=== PATIENT | female | born 1975 | race Caucasian/White ===

== ENCOUNTER 2017-03-26 08:59 | Inpatient (IN) | payer BC, OTHER ==
[~2017-03-26] VITALS: Ht 160 cm; Wt 71.7 kg
[2017-03-27 16:45] VITALS: BP 141/85
[2017-03-27] MEDS ORDERED: LORAZEPAM 1 MG TABLET PO PRN ×2 (16:45)
[2017-03-27] MEDS ORDERED: ACETAMINOPHEN 325 MG TABLET PO PRN (16:45)
[2017-03-27] MEDS ORDERED: LORAZEPAM 2 MG/1 ML VIAL IM PRN (16:45)
[2017-03-27] MEDS ORDERED: MAG HYDROX/AL HYDROX/SIMETH 30 ML LIQUID UDC PO PRN (16:45)
[2017-03-27] MEDS ORDERED: diphenhydrAMINE 50 MG CAPSULE PO PRN (16:45)
[2017-03-27] MEDS ORDERED: MIRALAX 17 GM POWD.PACK PO PRN (16:45)
[2017-03-27] MEDS ORDERED: ONDANSETRON 4 MG/2 ML VIAL IM PRN (16:45)
[2017-03-27] MEDS ORDERED: ONDANSETRON ODT 4 MG TAB.RAPDIS SL PRN (16:45)
[2017-03-27] MEDS ORDERED: LOPERAMIDE HCL 2 MG CAPSULE PO PRN ×2 (16:45)
[2017-03-27] MEDS ORDERED: CLONIDINE HCL 0.1 MG TABLET PO PRN (16:45)
--- NOTE | 2017-03-27 16:45 | NUR ---
PRE-ASSESSMENT: Pre-Assessment done at intake office, client is A/O x4, she presents with flat affect, anxious mood, fidgety. T 98, RR 18, BP 141/85, HR 107, spO2 @ 97% on RA, [place] 0/10. She is fully ambulatory. She denies any allergies; she denies any withdrawal-induced seizure. PMH: depression, anxiety, mood disorder, hypothyroidism. Past surgical hx: Bilateral tubal ligation, R knee sx, L tibia ORIF Medications taken at home Levothyroxine unknow dose Prednisone 20mg daily PO x 6/10 days for spider bite on R cheek 03/21/17 Keflex 500mg TID PO x 6/10 days for spider bite on R cheek 03/21/17 Neosporin ointment TOP for spider bite on R cheek 03/21/17 Substance history Alcohol 500-750mL for 4 years, last used 250mL prior to admission Alprazolam unknown dose 4 or 5 times a month, last used day of admission Hydrocodone unknown dose 4 or 5 times a month, last used 03/26/17 Cannabis a joint two or three time a week, last used day of admission Vital signs, urine drug screen, blood drawn, and home medication protocols discuss with client.
[2017-03-27 17:00] LABS: *URINE HCG, QUAL NEGATIVE (NEGATIVE)
--- NOTE | 2017-03-27 17:00 | NUR ---
Admissions Note 41 year old female admitted to [facility] for withdrawal from alcohol. Client reports PMH: depression, anxiety, mood disorder, hypothyroidism. Past surgical hx: Bilateral tubal ligation, R knee sx, L tibia ORIF Client is oriented to unit, educated about protocols and how to work TV and call light in her room. Weight: 158 pounds. Height: 5'3" CIWA 4 Client appears anxious, fidgety, skin intact with dry scab on R cheek d/t spider bite on 03/21/17. Bilateral lung clear on auscultation, abdomen soft, non-tender, no edema noted. Clients voice is soft, she avoids eye contact. Client has NKA. Regular diet ordered. Full code status ordered. Client denies any history of seizures. LBM was 03/27/17, small/brown/soft. PCP is Dr. Coleman, Pharmacy [facility] . She verbalizes consent for PNA and FLU vaccine. She gives verbal consent for HIV and request to be tested for STDs. Dr. Chavarria notified. Client states that he lives with her , two sons ages 26 and 23, and a 16-year-old daughter. She reports a prior treatment in a residential treatment center in 2009 for 5 days. Her longest period of sobriety is for 7 years from [id number] Dr Chavarria assessed client. Urine was collected upon admission. All safety measures instituted. [place] precaution. Call light within reach. Will continue to monitor.
[2017-03-27 17:07] LABS: *AMPHETAMINE, URINE POSITIVE (NEGATIVE); *BARBITURATE, URINE NEGATIVE (NEGATIVE); *CANNABINOID, URINE NEGATIVE (NEGATIVE); *COCCAINE, URINE NEGATIVE (NEGATIVE); *OPIATE, URINE NEGATIVE (NEGATIVE); *PHENCYCLIDINE SCREEN,URINE NEGATIVE (NEGATIVE)
[2017-03-27 17:21] LABS: BASOPHILS # (AUTO) 0.3 K/uL (0.0-8.0); BASOPHILS % (AUTO) 1.6 % (0.0-2.0); EOSINOPHILS % (AUTO) 0.2 % (0.0-7.0); HEMATOCRIT 45.2 % (37-47); HEMOGLOBIN 14.9 G/DL (12.0-16.0); LYMPHOCYTES # (AUTO) 1.6 K/UL (0.8-4.8); LYMPHOCYTES % (AUTO) 9.7 % (20.5-51.5); MEAN CORPUSCULAR HGB CONC 33 g/dL (32.0-37.0); MEAN CORPUSCULAR VOLUME 91.2 FL (81.0-99.0); MONOCYTES # (AUTO) 0.7 K/UL (0.1-1.30); MONOCYTES % (AUTO) 4.1 % (0.0-11.0); NEUTROPHILS # (AUTO) 13.8 K/UL (1.8-8.9); NEUTROPHILS % (AUTO) 84.4 % (38.5-71.5); PLATELET COUNT (AUTO) 208 K/UL (150-450); RED BLOOD CELL COUNT(AUTO) 4.95 MIL/UL (4.2-5.4); WHITE BLOOD COUNT (AUTO) 16.4 K/UL (4.0-11.2)
[2017-03-27 17:22] LABS: ETHANOL < 3 MG/DL (0-0)
[2017-03-27 17:24] LABS: ALANINE AMINOTRANSFERASE 37 U/L (14-59); ALKALINE PHOSPHATASE 89 U/L (50-136); AMYLASE 54 U/L (25-115); ASPARTATE AMINOTRANSFERASE 15 U/L (15-37); BILIRUBIN,TOTAL 0.2 mg/dL (0.2-1.0); CARBON DIOXIDE 26 mmol/L (21-32); CHLORIDE 103 mmol/L (98-107); GLUCOSE 82 mg/dL (74-106); MAGNESIUM 2.1 mg/dL (1.8-2.4); POTASSIUM 4.1 mmol/L (3.5-5.1); TOTAL PROTEIN, SERUM 8.7 g/dL (6.4-8.2); UREA NITROGEN, BLOOD 16 mg/dL (7-18)
[2017-03-27 17:33] LABS: THYROID STIMULATING HORMONE 0.658 mIU/mL (0.358-3.740)
[2017-03-27] MEDS ORDERED: PRED20TA PO (17:43)
[2017-03-27] MEDS ORDERED: NEOM28.37 TP (17:43)
[2017-03-27] MEDS ORDERED: CEPH-570 PO (17:43)
[2017-03-27 17:59] LABS: LYMPHOCYTES % (MANUAL) 15 % (20-40); MONOCYTES % (MANUAL) 7 % (2-10); NEUTROPHILS % (MANUAL) 78 % (42-75)
[2017-03-27] MEDS ORDERED: THIAMINE HCL 200 MG/2 ML VIAL IM ONE (18:00)
[2017-03-27] MEDS ORDERED: LEVO50TA8 PO (18:40)
--- NOTE | 2017-03-27 19:30 | NUR ---
END OF SHIFT Client is in room, she is a/o x 4, she consume 50% of meal, PO fluid intake of 500mL, void x 1. Safety precautions rendered. Call light within reach.
[2017-03-27 20:00] VITALS: BP 132/77
--- NOTE | 2017-03-27 20:00 | NUR ---
START OF SHIFT NOTE RECEIVED REPORT FROM DAY SHIFT NURSE. PATIENT IS A 41 YEAR OLD FEMALE NEWLY ADMITTED FOR ETOH DEPENDENCE. PATIENT WAS PLACED ON 5 DAYS ATIVAN TAPER TO START TOMORROW. PATIENT REPORTS PMH OF ANXIETY, DEPRESSION, HYPOTHYROIDISM, BOTH TUBAL LIGATION , RIGHT KNEE SURGERY AND LEFT TIBIA ORIF. NO SEIZURE HISTORY. PATIENT WITH DRY SCAB ON RIGHT CHEEK DUE TO SPIDER BITE ON 03/21/17. PATIENT IS ON ANTIBIOTIC AND PREDNISONE. THIAMINE IM INJECTION WAS GIVEN. LAST CIWA 4. PATIENT IN HER ROOM, RESTING, UPON GREETING, PATIENT STATES SHE'S TIRED, NO N/V, DENIES ANY PAIN AT THIS TIME. ON FALL/SEIZURE PRECAUTION. SAFETY MEASURES IN PLACE. CALL LIGHT IN REACH. WILL CONTINUE TO MONITOR.
[2017-03-27] MEDS: CEPHALEXIN 500MG PO SCH (20:17)
--- NOTE | 2017-03-27 20:17 | NUR ---
PRN BENADRYL RE-ASSESSMENT PATIENT REQUESTS FOR SLEEP AID. PRN BENADRYL GIVEN. WILL MONITOR FOR EFFECTIVENESS
[2017-03-27] MEDS ORDERED: LORAZEPAM 1 MG TABLET PO SCH (21:00)
--- NOTE | 2017-03-27 22:00 | NUR ---
VANNA GARCIA RE-ASSESSMENT PATIENT ASLEEP AT THIS TIME. RESPIRATION EVEN AND UNLABORED. SAFETY MEASURES IN PLACE. CALL LIGHT IN REACH. WILL CONTINUE TO MONITOR
[2017-03-28] VITALS: BP 122/78
--- NOTE | 2017-03-28 | NUR ---
CIWA DEFERRED PATIENT SLEEPING. CIWA DEFERRED. RESPIRATION EVEN AND UNLABORED. SAFETY MEASURES IN PLACE. CALL LIGHT IN REACH. WILL CONTINUE TO MONITOR
[2017-03-28 04:00] VITALS: BP 112/71
--- NOTE | 2017-03-28 04:00 | NUR ---
CIWA DEFERRED PATIENT SLEEPING. CIWA DEFERRED. RESPIRATION EVEN AND UNLABORED. SAFETY MEASURES IN PLACE. CALL LIGHT IN REACH. WILL CONTINUE TO MONITOR
[2017-03-28] MEDS: LEVOTHYROXINE SODIUM 50 MCG TABLET PO SCH (06:33)
--- NOTE | 2017-03-28 07:13 | NUR ---
END OF SHIFT NOTE PATIENT IS A 41 YEAR OLD FEMALE ADMITTED FOR ETOH DEPENDENCE. PATIENT WAS PLACED ON 5 DAYS ATIVAN TAPER TO START TODAY. PATIENT WITH DRY SCAB ON RIGHT CHEEK DUE TO SPIDER BITE ON 03/21/17. PATIENT IS ON ANTIBIOTIC WITH NO ADVERSE REACTION AND PREDNISONE. PATIENT IN HER ROOM MOST OF THE SHIFT. PATIENT WAS GIVEN PRN BENADRYL FOR SLEEP. PATIENT ENCOURAGE FLUIDS. ON FALL/SEIZURE PRECAUTION. SAFETY MEASURES IN PLACE. CALL LIGHT IN REACH. WILL CONTINUE TO MONITOR. SLEPT 11 HOURS. FLUID INTAKE 500 ML. VOIDED X 1. NO BM . LAST CIWA 5.
--- NOTE | 2017-03-28 07:30 | NUR ---
START OF SHIFT Pt is a 41 yr old female, AA&Ox4. Pt was admitted on 03/27/17 for ETOH/Benzo dependence and is on 5 day Ativan taper as ordered. received report from long term care administrator nurse. Pt is full code, regular diet and NKA. Pt slept for 11 hrs during the night. Last CIWA score was 5 at 1999. Pt received Benadryl PRN for sleep. Medication was effective. Pt is on antibiotics for dry scab on right cheek. No adverse reaction noted. pt is currently in bed resting with respirations even and unlabored. No acute distress noted. Pt is on fall and seizure precaution. Safety precautions observed. Call light is within reach. Will continue to monitor.
[2017-03-28 08:00] VITALS: BP 130/78
[2017-03-28] MEDS ORDERED: TUBERCULIN,PURIF.PROT.DERIV. 5 TU/0.1 ML TEST ID ONE (09:00)
[2017-03-28] MEDS: THIAMINE HCL 100 MG TABLET PO SCH (09:32)
[2017-03-28] MEDS: FOLIC ACID 1 MG TABLET PO SCH (09:33)
[2017-03-28] MEDS: MULTIVITAMINS,THERAPEUTIC TABLET PO SCH (09:33)
[2017-03-28] MEDS: LORAZEPAM 1 MG TABLET PO SCH ×4 (09:33→21:22)
[2017-03-28] MEDS: PREDNISONE 20MG PO SCH (09:48)
[2017-03-28] MEDS: IBUPROFEN 600 MG TABLET PO PRN ×2 (09:48→21:22)
--- NOTE | 2017-03-28 09:48 | NUR ---
PRN GIVEN Pt c/o generalized body aches 08/23. Motrin 600mg PO PRN was given as ordered. Encouraged increase fluid intake. Will continue to monitor.
[2017-03-28] MEDS ORDERED: PNEUMOCOCCAL 23-VAL P-SAC VAC 0.5 ML VIAL IM ONE (10:00)
[2017-03-28] MEDS ORDERED: INFLUENZA VACCINE 2017-2018 0.5 ML DISP.SYRIN IM ONE (10:00)
[2017-03-28] MEDS: CEPHALEXIN 500MG PO SCH ×3 (10:02→21:22)
--- NOTE | 2017-03-28 10:48 | NUR ---
PRN RE-ASSESSMENT Motrin PRN was effective. Pt is currently in bed resting. No acute distress noted. Safety precaution observed.
[2017-03-28 12:00] VITALS: BP 113/74
--- NOTE | 2017-03-28 12:00 | NUR ---
CIWA DEFERRED CIWA assessment deferred. Pt is currently in bed sleeping with respirations even and unlabored. No acute distress noted RR is 16. Safety precautions observed. Call light is within reach. Will continue to monitor. Addendum: 03/28/17 at 1332 by LONNIE HOLMAN LVN Amended: Links added.
--- NOTE | 2017-03-28 13:33 | NUR ---
NSG NOTES Ativan 2mg PO as scheduled for 1300 was held due to pt is too sedative. Safety precautions observed. Call light is within reach. Will continue to monitor.
[2017-03-28 16:00] VITALS: BP 112/70
[2017-03-28] MEDS ORDERED: QUETIAPINE FUMARATE 25 MG TABLET PO PRN (18:30)
--- NOTE | 2017-03-28 18:33 | NUR ---
COMMUNICATION Report to Dr. Dinh, Pt was requesting for Seroquel for sleep. Received telephone order to discontinue Benadryl PRN for sleep and new order for Seroquel 50mg PO HSPRN for insomnia. New order was noted and carried out.
--- NOTE | 2017-03-28 18:54 | NUR ---
END OF SHIFT Pt is a 41 yr old female, AA&Ox4. Pt was admitted on 03/27/17 for ETOH/Benzo dependence and is on 5 day Ativan taper as ordered. Medication was shirley well. Ativan 2mg PO as scheduled at 1300 was held due to pt was too sedative. Pt has been cooperative with medication regimen. Pt did not attended group during the day due to pt was too sedative. Last CIWA score was 5 at 1600. Pt received Motrin PRN for generalized muscle aching. Medication was effective. Pt remains on antibiotics for infection on dry scab on right cheek. No adverse reaction noted. Encouraged increase fluid intake. Pt is on fall and seizure precaution. Safety precautions observed. Call light is within reach.
--- NOTE | 2017-03-28 19:50 | NUR ---
START OF SHIFT Received report from day shift nurse. Pt is lying in bed resting. She is a 41 yo female admitted to [facility] on 03/27 for ETOH dependence with a h/o BZD use. She is A&O x4 and ambulatory. NKA, full code status, and on a regular diet. She has a PMH of hypothyroid, anxiety, and depression. Her past surgical history includes bilateral tubal ligation, right knee, and left tibia ORIF. On admission pt reports drinking vodka 500-750mL per day, using xanax a few times per month, hydrocodone a few times per month, methamphetamine 0.5 grams, and marijuana. 5 day Ativan taper started today. She reports headache and sweating. Taper due tonight. Fall and seizure precautions in place. Bed is down with call light in reach.
[2017-03-28 20:00] VITALS: BP 107/69
--- NOTE | 2017-03-28 21:22 | NUR ---
PRN Motrin Pt reports mild headache. PRN Motrin administered.
--- NOTE | 2017-03-28 22:22 | NUR ---
PRN Motrin reassessment PRN Motrin effective. Pt reports headache is relieved.
[2017-03-29] VITALS: BP 98/61
--- NOTE | 2017-03-29 | NUR ---
0000 CIWA deferred CIWA ordered Q4HWA. Pt is lying in bed resting with eyes closed. Respirations even and unlabored. Vital signs obtained. Safety measures in place.
[2017-03-29 04:00] VITALS: BP 114/78
--- NOTE | 2017-03-29 04:00 | NUR ---
0400 CIWA deferred CIWA ordered Q4HWA. Pt is lying in bed resting with eyes closed. Respirations even and unlabored. Vital signs obtained. Safety measures in place.
[2017-03-29] MEDS: LEVOTHYROXINE SODIUM 50 MCG TABLET PO SCH (06:49)
--- NOTE | 2017-03-29 07:24 | NUR ---
END OF SHIFT Report provided to day shift nurse. Pt is lying in bed resting. She is a 41 yo female admitted to [facility] on 03/27 for ETOH dependence with a h/o BZD use. She is A&O x4 and ambulatory. NKA, full code status, and on a regualar diet. She has a PMH of hypothyroid, anxiety, and depression. Her past surgical history includes bilateral tubal ligation, right knee, and left tibia ORIF. On admission pt reports drinking vodka 500-750mL per day, using xanax a few times per month, hydrocodone a few times per month, methamphetamine 0.5 grams, and marijuana. 5 day Ativan taper started 03/28. PRN Motrin administered for headache. She drank 828mL and slept for 11 hours. Fall and seizure precautions in place. Bed is down with call light in reach.
--- NOTE | 2017-03-29 07:25 | NUR ---
Start of Shift Notes: Received report from night nurse. Patient is in her room. Alert and verbally responsive. Oriented x 4. Able to make his/her needs known. Respirations even and unlabored. No SOB noted. Skin warm and moist to touch. Abdomen soft and non-distended. BS (+) in all 4 quadrants. No complains of N/V/D or constipation noted. Bladder non-distended. No complains of dysuria noted. Ambulatory ad nolvia with steady gait. Patient is a 41 year old female admitted for ETOH/BZO dependence who was placed on a 5-day Ativan taper as ordered. No adverse reactions noted. Has past medical hx of anxiety, depression, hypothyroidism, bilateral tubal ligation, right knee surgery, and left tibia ORIF. Prior to admission, patient was using 500-750cc of Vodka, few times of Xanax, few times of hydrocodone, "a joint" of marijuana 2-3 times a wee4k, 1/2 gram of methamphetamine. Educated patient on the current plan of care for the day and the medication regimen. Encouraged oral fluid intake and encouraged group participation to learn new skills to prevent relapse. Will continue to monitor closely throughout the day.
[2017-03-29 08:00] VITALS: BP 124/82
[2017-03-29 08:06] LABS: HEPATITIS B SURFACE AG Negative (Negative)
[2017-03-29] MEDS: MULTIVITAMINS,THERAPEUTIC TABLET PO SCH (08:26)
[2017-03-29] MEDS: THIAMINE HCL 100 MG TABLET PO SCH (08:26)
[2017-03-29] MEDS: FOLIC ACID 1 MG TABLET PO SCH (08:26)
[2017-03-29] MEDS: LORAZEPAM 1 MG TABLET PO SCH ×3 (08:26→20:28)
[2017-03-29] MEDS: PREDNISONE 20MG PO SCH (08:27)
[2017-03-29] MEDS: CEPHALEXIN 500MG PO SCH ×3 (08:27→20:29)
[2017-03-29 12:00] VITALS: BP 109/67
[2017-03-29] MEDS ORDERED: GABAPENTIN 300 MG CAPSULE PO ONE (15:00)
--- NOTE | 2017-03-29 15:39 | NUR ---
Therapist prompted client about group times. Client stated she will not be attending groups today because she does not feel well.
[2017-03-29 16:00] VITALS: BP 99/64
--- NOTE | 2017-03-29 18:59 | NUR ---
End of Shift Notes: Patient continues to be on 5-day Ativan taper as ordered. No adverse reactions noted. Patient is tolerating taper well. VS monitored closely. No significant abnormalities noted. Withdrawal symptoms were closely monitored. Initial CIWA 8, patient presented with anxiety, agitation, sweating and tremors. Last CIWA 3. Per patient, Ativan has been effective in reducing her withdrawal symptoms. Encouraged to participate in group and activities. Noted with episodes of self isolation. Stayed in her room for most of the shift. Compliant with care and treatment. All needs met and attended. Will continue to monitor closely.
[2017-03-29 20:00] VITALS: BP 126/80
--- NOTE | 2017-03-29 20:00 | NUR ---
Start of Shift Pt is a 41 year old female admitted for ETOH dependence, placed on 5 day Ativan taper. Pt reported consuming Vodka 500-750ml/daily. Pt also reported intermittent use of Xanax, Hydrocodone, marijuana and methamphetamine. PMH: Anxiety, depression, Hypothyroidism and sx of bilateral tubal ligation, right knee sx and left tibia ORIF. NKA, regular diet, fall/seizure precautions and full code. Upon assessment, pt reports feeling fatigue with mild chills throughout body, skin is flushed, respirations even/unlabored, denies SOB/chest pain, denies n/v/d, medications due. Safety measures in place, call light within reach, side rails up x2, bed locked and in low position. Will continue to monitor.
[2017-03-29] MEDS: GABAPENTIN 300 MG CAPSULE PO SCH (20:28)
[2017-03-30] VITALS: BP 105/55
--- NOTE | 2017-03-30 | NUR ---
CIWA deferred due to pt sleeping, to assess while awake as ordered. BP 105/55, pulse 94, resp 16, SpO2 97% room air, temp 97.8, no pain 0/[address], will continue to monitor.
[2017-03-30 04:00] VITALS: BP 101/67
--- NOTE | 2017-03-30 04:00 | NUR ---
CIWA deferred due to pt sleeping, to assess while awake as ordered. BP 101/67, pulse 92, resp 18, SpO2 97% room air, temp 97.6, no pain 0/[address], will continue to monitor.
[2017-03-30] MEDS: LEVOTHYROXINE SODIUM 50 MCG TABLET PO SCH (06:30)
--- NOTE | 2017-03-30 07:00 | NUR ---
End of Shift Pt is a 41 year old female admitted for ETOH dependence, placed on 5 day Ativan taper. Pt reported consuming Vodka 500-750ml/daily. Pt also reported intermittent use of Xanax, Hydrocodone, marijuana and methamphetamine. PMH: Anxiety, depression, Hypothyroidism and sx of bilateral tubal ligation, right knee sx and left tibia ORIF. NKA, regular diet, fall/seizure precautions and full code. During shift, pt reported feeling fatigue with mild chills throughout body, skin is flushed - scheduled taper medications administered, CIWA 3. No PRN medications administered during shift. Pt slept for 11 hours, intake of 1000 ml PO, voids x1. and stool x0. Safety measures in place, call light within reach, side rails up x2, bed locked and in low position. Endorsed to day shift nurse.
--- NOTE | 2017-03-30 07:05 | NUR ---
Start of Shift Patient Received. Patient is in her room sleeping. Breathing even and non labored. No signs of pain or discomfort noted. Patient is a 41 year old female that was admitted on 03/27/17 for ETOH Dependence under the care of Dr. Chavarria and is currently receiving a 5 day Ativan taper. Patient verbalizes no known allergies, wishes to be full code, following a regular diet, placed on fall and seizure precautions. Skin noted with dry scab to the right cheek. Past Medical History noted as Anxiety, Depression, Hypothyroidism, multiple surgical history, no history of seizures. per endorsement, patients last noted CIWA 3 and slept a total of 11 hours. No PRN medications administered. All needs attended to promptly. Will continue plan of care as ordered.
[2017-03-30 08:53] VITALS: BP_SYST 102; BP_SYST 142; BP_DIAS 61; BP_DIAS 75
[2017-03-30] MEDS ORDERED: LORAZEPAM 1 MG TABLET PO SCH ×2 (09:00→21:00)
[2017-03-30] MEDS: LORAZEPAM 1 MG TABLET PO SCH ×2 (09:07→14:09)
[2017-03-30] MEDS: FOLIC ACID 1 MG TABLET PO SCH (09:07)
[2017-03-30] MEDS: CEPHALEXIN 500MG PO SCH ×3 (09:07→20:29)
[2017-03-30] MEDS: MULTIVITAMINS,THERAPEUTIC TABLET PO SCH (09:08)
[2017-03-30] MEDS: GABAPENTIN 300 MG CAPSULE PO SCH ×2 (09:08→20:29)
[2017-03-30] MEDS: PREDNISONE 20MG PO SCH (09:08)
[2017-03-30] MEDS: THIAMINE HCL 100 MG TABLET PO SCH (09:08)
[2017-03-30 12:25] VITALS: BP 106/67
[2017-03-30 16:00] VITALS: BP 111/65
--- NOTE | 2017-03-30 19:12 | NUR ---
End of Shift Patient is in her room sleeping. Breathing even and non labored. No signs of pain or discomfort noted. Patient is a 41 year old female that was admitted on 03/27/17 for ETOH Dependence under the care of Dr. Chavarria and is currently receiving a 5 day Ativan taper. No Known Allergies, Full Code, Regular Diet, placed on fall and seizure precautions. Skin noted with dry scab to the right cheek. Past Medical History noted as Anxiety, Depression, Hypothyroidism, multiple surgical history, no history of seizures. Patient noted to be withdrawn to room and flat. Patient denies suicidal or homicidal ideation. Patients last noted CIWA 2. No PRN medications administered. All needs attended to promptly. Will endorse to continue plan of care as ordered.
[2017-03-30 20:00] VITALS: BP 106/62
--- NOTE | 2017-03-30 20:00 | NUR ---
START OF SHIFT NOTE RECEIVED REPORT FROM DAY SHIFT NURSE. PATIENT IS A 41 YEAR OLD FEMALE ADMITTED FOR ETOH DEPENDENCE. PATIENT IS ON 5 DAY ATIVAN TAPER. PATIENT REPORTS PMH OF ANXIETY, DEPRESSION, HYPOTHYROIDISM, (B) TUBAL LIGATION, RIGHT KNEE SURGERY AND LEFT TIBIA ORIF. NO SEIZURE HISTORY. CONTINUE ON ANTIBIOTIC PO FOR SPIDER BITE (03/21/17. PATIENT DID NOT REQUIRE ANY PRN MEDICATION. VS STABLE. LAST CIWA 2. RECEIVED PATIENT IN THE ROOM, RESTING. PATIENT REPORTS HOT AND COLD SWEATS, NO N/V, ANXIETY AND NOTED IRRITABLE. PATIENT DID NOT ATTEND GROUPS TODAY. ENCOURAGE FLUIDS. ON FALL/SEIZURE PRECAUTION. SAFETY MEASURES IN PLACE. CALL LIGHT IN REACH. WILL CONTINUE TO MONITOR.
[2017-03-30] MEDS: ESCITALOPRAM OXALATE 10 MG TABLET PO SCH (20:29)
--- NOTE | 2017-03-31 | NUR ---
CIWA DEFERRED PATIENT SLEEPING. PATIENT REFUSED VS. CIWA DEFERRED. RESPIRATION EVEN AND UNLABORED. SAFETY MEASURES IN [place]. CALL LIGHT IN REACH. WILL CONTINUE TO MONITOR.
--- NOTE | 2017-03-31 04:00 | NUR ---
CIWA DEFERRED PATIENT SLEEPING. PATIENT REFUSED VS. CIWA DEFERRED. RESPIRATION EVEN AND UNLABORED. SAFETY MEASURES IN [place]. CALL LIGHT IN REACH. WILL CONTINUE TO MONITOR.
[2017-03-31] MEDS: LEVOTHYROXINE SODIUM 50 MCG TABLET PO SCH (06:44)
--- NOTE | 2017-03-31 06:55 | NUR ---
END OF SHIFT NOTE PATIENT IS A 41 YEAR OLD FEMALE ADMITTED FOR ETOH DEPENDENCE. PATIENT IS ON 5 DAY ATIVAN TAPER, TOLERATED WELL AND NO ADVERSE REACTION. CONTINUE ON ANTIBIOTIC PO FOR SPIDER BITE (03/21/17), NO ADVERSE REACTION. PATIENT DID NOT REQUIRE ANY PRN MEDICATION. VS STABLE. PATIENT DID NOT ATTEND GROUPS . CONTINUE TO ENCOURAGE. PATIENT IN ROOM , MOST OF THE SHIFT ,RESTING. ENCOURAGE FLUIDS. ON FALL/SEIZURE PRECAUTION. SAFETY MEASURES IN PLACE. CALL LIGHT IN REACH. WILL CONTINUE TO MONITOR. SLEPT 10 HOURS. FLUID INTAKE 2,150 ML. VOIDED X 1. NO BM. LAST CIWA 4.
--- NOTE | 2017-03-31 07:30 | NUR ---
START OF SHIFT Pt 41 y/o female admitted for alcohol withdrawal. Pt received in room on bed with eyes closed resting but easily arousable to name. Pt alert and oriented to name, place, and time. Perrla. Skin warm and slightly moist to touch. Respirations even and unlabored. Bilateral hand tremors noted. Pt appeared irritable with blunt affect. It was reported that pt slept for 10 hours last night. Bed on lowest position with side rails x2 up for safety. Call light within reach. No distress noted at this time.
[2017-03-31 08:00] VITALS: BP 128/77
[2017-03-31] MEDS: MULTIVITAMINS,THERAPEUTIC TABLET PO SCH (08:57)
[2017-03-31] MEDS: FOLIC ACID 1 MG TABLET PO SCH (08:57)
[2017-03-31] MEDS: GABAPENTIN 300 MG CAPSULE PO SCH ×2 (08:57→20:13)
[2017-03-31] MEDS: LORAZEPAM 1 MG TABLET PO SCH ×2 (08:57→20:13)
[2017-03-31] MEDS: THIAMINE HCL 100 MG TABLET PO SCH (08:57)
[2017-03-31] MEDS ORDERED: LORAZEPAM 1 MG TABLET PO SCH (09:00)
[2017-03-31] MEDS: CEPHALEXIN 500MG PO SCH ×3 (09:00→20:13)
[2017-03-31] MEDS ORDERED: predniSONE 20 MG TABLET PO SCH (09:00)
[2017-03-31 12:24] VITALS: BP 102/61
[2017-03-31 17:11] VITALS: BP 100/57
--- NOTE | 2017-03-31 18:10 | NUR ---
END OF SHIFT Pt 41 y/o female admitted for alcohol withdrawal. Pt alert and oriented to name, place, and time. Perrla. Skin warm and moist to touch. Respirations even and unlabored. Bilateral hand tremors noted. Pt observed mostly isolative to room throughtout the day. Pt was seen by MD today. Pt medication compliant and tolerated well. No ASE noted. Bed on lowest position with side rails x2 up for safety. Call light within reach. NO distress noted at this time.
--- NOTE | 2017-03-31 19:30 | NUR ---
START OF SHIFT Pt is a 41 y/o female admitted on 03/27/17 for ETOH, benzo, opiate and meth dependence. Pt is full code, NKA, regular diet and fall/seizure precautions. No reported seizure history. Pt reports PMH of anxiety, depression and hypothyroidism. Pt is on a 5 day Ativan taper that started on 03/28/17, tolerating well. Upon assessment pt was laying in bed watching TV with fan in room. Pt presents with anxiety, headache 2/10, nausea, sweats, restlessness, irritability, difficulty sleeping, chills, decreased appetite, anhedonia, dysphoria and fatigue. Respirations 16, even and unlabored. Denies V/D. Denies chest pain or SOB. Medications due. Safety measures in place with padded rails. Call light within reach. Will continue to monitor.
[2017-03-31] MEDS: IBUPROFEN 600 MG TABLET PO PRN (19:32)
--- NOTE | 2017-03-31 19:32 | NUR ---
PRN ZOFRAN AND MOTRIN ADMINISTRATION Pt reports nausea, no vomiting. Pt also reports headache 08/23. Safety measures in place. Call light within reach. Will continue to monitor.
[2017-03-31 20:00] VITALS: BP 116/70
[2017-03-31] MEDS: ESCITALOPRAM OXALATE 10 MG TABLET PO SCH (20:13)
--- NOTE | 2017-03-31 20:32 | NUR ---
PRN ZOFRAN AND MOTRIN REASSESSMENT Pt reports improvement in nausea and headache, both still present but at tolerable level. Safety measures in place. Call light within reach. Will continue to monitor.
--- NOTE | 2017-04-01 | NUR ---
CIWA DEFERRED AND VITALS REFUSED Pt is laying in bed with eyes closed, CIWA deferred, to be assessed when pt is awake per orders. Vitals refused. Respirations 16, even and unlabored. Safety measures in place. Call light within reach. Will continue to monitor.
[2017-04-01] MEDS: LEVOTHYROXINE SODIUM 50 MCG TABLET PO SCH (06:50)
--- NOTE | 2017-04-01 07:18 | NUR ---
END OF SHIFT Pt is a 41 y/o female admitted on 03/27/17 for ETOH, benzo, opiate and meth dependence. Pt is full code, NKA, regular diet and fall/seizure precautions. No reported seizure history. Pt reports PMH of anxiety, depression and hypothyroidism. Pt is on a 5 day Ativan taper that started on 03/28/17, tolerating well. Pt presented with anxiety, headache 2/10, nausea, sweats, restlessness, irritability, difficulty sleeping, chills, decreased appetite, anhedonia, dysphoria and fatigue. Scheduled medications and PRN Zofran and Motrin administered, effective in S/S of withdrawal as verbalized by pt. Last CIWA 11 at 1999. Pt slept 11 hours, intake 1000 ml, void x 0, stool x 0. Safety measures in place. Call light within reach. Pts needs have been met. Endorsed to day shift nurse.
--- NOTE | 2017-04-01 07:30 | NUR ---
START OF SHIFT Pt 41 y/o female admitted for alcohol withdrawal. Pt received in room on bed with eyes closed resting, but easily arousable to name. Pt alert and oriented to name, place, and time. Perrla. Skin warm and slightly moist to touch. Respirations even and unlabored. Pt with flat affect during conversation. It was reported that pt slept for 11 hours last night. Bed on lowest position with side rails x2 up for safety. Call light within reach. No distress noted at this time.
[2017-04-01 08:00] VITALS: BP 106/66
[2017-04-01] MEDS ORDERED: LORAZEPAM 1 MG TABLET PO SCH ×2 (09:00)
[2017-04-01] MEDS: FOLIC ACID 1 MG TABLET PO SCH (09:11)
[2017-04-01] MEDS: GABAPENTIN 300 MG CAPSULE PO SCH ×2 (09:11→20:52)
[2017-04-01] MEDS: MULTIVITAMINS,THERAPEUTIC TABLET PO SCH (09:11)
[2017-04-01] MEDS: CEPHALEXIN 500MG PO SCH ×2 (09:12→14:25)
[2017-04-01] MEDS: THIAMINE HCL 100 MG TABLET PO SCH (09:14)
[2017-04-01 12:00] VITALS: BP 106/59
--- NOTE | 2017-04-01 17:43 | NUR ---
Therapist prompted client to attend group today. Client agreed to attend
[2017-04-01 17:46] VITALS: BP 100/53
[2017-04-01 20:00] VITALS: BP 101/59
--- NOTE | 2017-04-01 20:00 | NUR ---
1999 Patient received resting quietly in position of comfort. Patient easily aroused to her name and she responds to nurse's greeting and introduction with brief eye contact and soft, flat, "Hi". Patient's color is pale pink and her skin is warm, very slightly moist and intact. Patient is oriented to person, place, day, date and her personal situation. Reoriented to time. Patient denies any pain or other discomforts presently and she voices no requests for anything. Patient states that she continues to eat her regular diet meal trays and take various fluids ad nolvia, as best she can, with no gastric issues st this time. Patient did not attend [facility]. Vital signs are: 98.3-100-16 101/59, O2 Sat 96%, CIWA 1 . Patient is to be discharged tomorrow. Patient was admitted on 03/27/17 for: Alcohol, Xanax, Hydrocodone, Marijuana and Methamphetamine withdrawal and she has completed a 5-Day Ativan medication withdrawal. Bed is locked and in lowest position, bed rails are up X 2, F/S precautions continue and call light on bed.
[2017-04-01] MEDS ORDERED: ESCI10TA PO (20:08)
[2017-04-01] MEDS ORDERED: LEVO50TA8 PO (20:08)
[2017-04-01] MEDS ORDERED: QUET25TA PO (20:08)
[2017-04-01] MEDS ORDERED: IBUP-1955 PO (20:08)
[2017-04-01] MEDS ORDERED: GABA-534 PO (20:08)
[2017-04-01] MEDS: ESCITALOPRAM OXALATE 10 MG TABLET PO SCH (20:52)
--- NOTE | 2017-04-01 20:53 | NUR ---
PRN MEDICATION: Prn Seroquel 50 mg p.o. given per request for sleep medication.
--- NOTE | 2017-04-01 21:53 | NUR ---
REASSESSMENT PRN MEDICATION: Patient is sleeping comfortably in -like position, with eyes closed and respirations quiet, even, unlabored at 12.
[2017-04-02] VITALS: BP 101/59
--- NOTE | 2017-04-02 | NUR ---
Patient refused to be awakened for V/S, CIWA to be done at this time. V/S, CIWA deferred.
--- NOTE | 2017-04-02 04:00 | NUR ---
Patient refused to be awakened for V/S, CIWA to be done at this time. V/S, CIWA deferred.
--- NOTE | 2017-04-02 06:30 | NUR ---
0630 Patient slept a total of 10 hours and she had 3 voids and no stools. Total intake was 1,500 ml p.o. Prn medication given noted separately per floor protocol. V/SS afebrile, last CIWA 1 at 1999.
[2017-04-02] MEDS: LEVOTHYROXINE SODIUM 50 MCG TABLET PO SCH (06:55)
--- NOTE | 2017-04-02 07:30 | NUR ---
START OF SHIFT Received report from night nurse. 41 year old female patient admitted on 03/27/17 for opiate, methamphetamine and ETOH withdrawals. Pt has Pt has completed 5 day Ativan taper and is medically cleared for discharge. PRN Seroquel administered and effective. Pt slept for 9 hours. V/S remain WNL throughout CIWA is 1. No acute withdrawal discomfort, pt remains compliant. Will continue to monitor.
[2017-04-02 08:53] VITALS: BP 108/65
[2017-04-02] MEDS: GABAPENTIN 300 MG CAPSULE PO SCH (09:04)
[2017-04-02] MEDS: THIAMINE HCL 100 MG TABLET PO SCH (09:04)
[2017-04-02] MEDS: MULTIVITAMINS,THERAPEUTIC TABLET PO SCH (09:04)
[2017-04-02] MEDS: FOLIC ACID 1 MG TABLET PO SCH (09:04)
--- NOTE | 2017-04-02 10:30 | NUR ---
D/C NOTES Pt is A/O x4. V/S remain WNL. Pt denies SI/HI or hallucinations. Pt shows no s/s of acute withdrawal at this time, and is stable. MD has medically cleared pt for d/c . Education on Hepatitis C, smoking cessation and medication side effects provided. Pt verbalizes understanding. All pt belongings are in belonging bag, including prescriptions, and home medications. Refuses PNU vaccination. Pt is being accompanied by [employer] at this time to be transported to rehab. All needs met.
== END 2017-04-02 10:30 | disposition other institution (70) | DRG 895 ==
LOC: SRC 03-27 15:43
PROVIDERS: ADMIT Internal Medicine; ATTEND Internal Medicine
PROC: HZ2ZZZZ Detoxification Services for Substance Abuse Treatment (ICD-10-PCS; principal; 2017-03-27)
PROC: HZ31ZZZ Individual Counseling for Substance Abuse Treatment, Behavioral (ICD-10-PCS; 2017-03-29)
DX: F10.230 Alcohol dependence with withdrawal, uncomplicated (principal); F31.9 Bipolar disorder, unspecified; I15.9 Secondary hypertension, unspecified; E03.9 Hypothyroidism, unspecified; F15.23 Other stimulant dependence with withdrawal; Y90.0 Blood alcohol level of less than 20 mg/100 ml; Z91.89 Other specified personal risk factors, not elsewhere classified; F41.9 Anxiety disorder, unspecified; Z81.1 Family history of alcohol abuse and dependence; Z83.3 Family history of diabetes mellitus; Z81.8 Family history of other mental and behavioral disorders; Z80.9 Family history of malignant neoplasm, unspecified; F17.210 Nicotine dependence, cigarettes, uncomplicated; F13.10 Sedative, hypnotic or anxiolytic abuse, uncomplicated; F11.90 Opioid use, unspecified, uncomplicated; F12.90 Cannabis use, unspecified, uncomplicated; S00.86XD Insect bite (nonvenomous) of other part of head, subsequent encounter; L08.9 Local infection of the skin and subcutaneous tissue, unspecified; W57.XXXD Bitten or stung by nonvenomous insect and other nonvenomous arthropods, subsequent encounter
CPT/HCPCS: 36415; 80307; 80324; 80346; 83735; 84443; 84703; 85025; 86580; 86592; 86705; 86803; 87340; 87806; 90686; 90732; G0480; J3411; J7512; Q0162; Q0163